=== PATIENT | male | born 1955 | race African-American/Black ===

== ENCOUNTER 2016-12-02 18:30 | Emergency (ER) | payer OTHER ==
[~2016-12-02] VITALS: Ht 175.3 cm; Wt 94.4 kg
[2016-12-02 18:52] LABS: HEMATOCRIT 41.7 % (38.0-50.0); MCH 31.2 PG (29.0-34.0); MCHC 34.1 G/DL (30.0-36.0); MCV 91.6 FL (86-99); MEAN PLAT.VOLUME 9.7 uM^3 (9.0-12.4); PLATELET COUNT 265 K/uL (156-360); RBC DIS.WIDTH-CV 13.3 % (11.8-14.6); RBC DIS.WIDTH-SD 45.5 % (39-53); RED BLOOD COUNT 4.55 M/uL (4.00-5.50); WHITE BLOOD COUNT 9.5 K/uL (4.1-10.2)
[2016-12-02 19:00] LABS: CHLORIDE 104 mEq/L (99-109); POTASSIUM 3.6 mEq/L (3.7-5.4); SODIUM 139 mEq/L (136-147)
[2016-12-02 19:02] LABS: GLUCOSE 203 mg/dL (70-99)
[2016-12-02 19:03] LABS: ANION GAP 11 MEQ/L (2-14)
[2016-12-02 19:04] LABS: TOTAL BILIRUBIN 0.4 mg/dL (0.0-1.0)
[2016-12-02 19:06] LABS: ALKALINE PHOSPHATASE 45 IU/L (3-129); GFR ESTIMATE (CALCULATED) > 59 mL/min/
[2016-12-02 19:07] LABS: UREA NITROGEN (BUN) 14 mg/dL (9-23)
[2016-12-02 20:44] LABS: ADD MIUA? YES; BILIRUBIN NEGATIVE; BLOOD NEGATIVE; COLOR YELLOW ((YELLOW)); GLUCOSE (STRIP) >=500; KETONES NEGATIVE; LEUKOCYTES NEGATIVE; NITRITE NEGATIVE; PROTEIN (STRIP) NEGATIVE; SPECIFIC GRAVITY 1.022 (1.000-1.030); UROBILINOGEN 0.2 MG/DL (0.2-1.0)
[2016-12-02 20:46] LABS: BACTERIA RARE /HPF; EPITHELIAL CELLS NONE SEEN /HPF; MUCUS TRACE /LPF; RED BLOOD CELLS 0-5 /HPF (0-5); UCUL ADDED? NO; WHITE BLOOD CELLS 0-5 /HPF (0-5)
[2016-12-02 22:24] VITALS: BP 148/82
== END 2016-12-02 22:25 | disposition home or self-care (01) ==
LOC: EME 18:30
DX: K59.00 Constipation, unspecified (principal); R10.32 Left lower quadrant pain; I10 Essential (primary) hypertension
CPT/HCPCS: 74000; 80053; 81003; 85027; 99281; 99284

== ENCOUNTER 2016-12-09 12:23 | Emergency (ER) | payer OTHER ==
[~2016-12-09] VITALS: Ht 175.3 cm; Wt 94.1 kg
[2016-12-09 13:53] VITALS: BP 155/88
== END 2016-12-09 13:54 | disposition home or self-care (01) ==
LOC: EME 12:23
DX: S08.0XXA Avulsion of scalp, initial encounter (principal); W26.8XXA Contact with other sharp object(s), not elsewhere classified, initial encounter; Y93.89 Activity, other specified; Z87.891 Personal history of nicotine dependence
CPT/HCPCS: 99281; 99284

== ENCOUNTER → 2017-01-10 | Outpatient (CLI) | payer OTHER ==
[~2017-01-10] VITALS: Ht 175.3 cm; Wt 95.3 kg
[~2017-01-10] MED LIST: ALEVE220 MG PO; ASPIR 8181 M1 PO; CARDURA4 MG PO; MULTIPLE VITAM1 EACH PO; NASAL RELIEF30 ML BOTH NARES; PROZAC20 MG PO; SENNA8.6 MG PO; TRAZODONE HCL50 MG PO; ZESTRIL20 MG PO
[2017-01-10 12:16] LABS: POINT-OF-CARE METER ID UU14107333
== END | disposition home or self-care (01) ==
LOC: AMB 11:39
PROVIDERS: Internal Medicine
PROC: 0DBN8ZX Excision of Sigmoid Colon, Via Natural or Artificial Opening Endoscopic, Diagnostic (ICD-10-PCS; principal; 2017-01-10)
DX: Z12.11 Encounter for screening for malignant neoplasm of colon (principal); D12.5 Benign neoplasm of sigmoid colon; K57.30 Diverticulosis of large intestine without perforation or abscess without bleeding; K64.8 Other hemorrhoids; K59.00 Constipation, unspecified; Z87.891 Personal history of nicotine dependence
CPT/HCPCS: 82948; 88305; 93005; J2250; J3010